=== PATIENT | male | born 1940 | race Caucasian/White ===

== ENCOUNTER 2021-09-20 11:58 | Inpatient (IN) | payer MEDICARE ==
[2021-09-20 13:42] LABS: #Monocytes 0.7 10x3/uL (0.0-1.1); #Neutrophils 4.3 10x3/uL (1.5-8.4); %Basophils 0.6 % (0.0-2.0); %Eosinophils 0.5 % (0.0-6.0); %Lymphocytes 23.8 % (18.0-47.0); %Monocytes 10.3 % (0.0-10.0); %Neutrophils 64.3 % (40.0-75.0); Hemoglobin 13.3 g/dL (13.5-17.5); Mean Corpuscular HGB CONC 36.3 g/dL (32.0-36.0); Mean Corpuscular Hemoglobin 34.9 pg (27.0-33.0); Mean Corpuscular Volume 96.1 fl (81.2-95.1); Mean Platelet Volume 9.2 fl (7.4-10.4); Platelet Count 213 10x3/uL (150-450); RBC Distribution Width 11.6 % (11.5-14.5); Red Blood Cell (RBC) Count 3.81 10x6/uL (4.32-5.72); White Blood Cell (WBC) Count 6.6 10x3/uL (3.5-10.5)
[2021-09-20 13:54] LABS: ALT (SGPT) 13 U/L (8-55); AST (SGOT) 29 U/L (5-34); Albumin 3.8 g/dL (3.4-4.8); Alkaline Phosphatase 70 U/L (40-110); Anion Gap 16 mmol/L (10-20); BUN (Urea Nitrogen) 11 mg/dL (8.4-25.7); Bilirubin, Total 0.6 mg/dL (0.2-1.2); Calc. Creatinine Clearance 0 mL/min (70-130); Calcium 8.7 mg/dL (7.8-10.44); Carbon Dioxide 22 mmol/L (23-31); Chloride 80 mmol/L (98-107); Globulin 2.3 g/dL (2.4-3.5); Potassium 4.5 mmol/L (3.5-5.1); Protein, Total 6.1 g/dL (5.8-8.1)
[2021-09-20 13:55] LABS: Glucose 57 mg/dL (83-110); Sodium 113 mmol/L (136-145)
[2021-09-20] MEDS ORDERED: Dextrose 50% Abboject 50 ML SYRINGE ONE (14:35)
[2021-09-20] MEDS ORDERED: Sodium Chloride 3% 100 ML IVPB SCH (15:30)
[2021-09-20] MEDS ORDERED: Senokot S 8.6-50 MG TAB PO PRN (15:34)
[2021-09-20 15:50] LABS: Bilirubin Neg (Negative); Blood, Urine Negative (Negative); Clarity Clear (Clear); Glucose, Urine (Dipstick) Normal (Negative); Ketone, Urine Negative (Negative); Leukocyte Negative (Negative); Nitrite Negative (Negative); Protein, Urine (Dipstick) Negative (Neg-Trace); Urobilinogen Normal mg/dL (Less than 2)
[2021-09-20 16:20] LABS: Glucose POC Confirmation 108 mg/dl (83-110)
[2021-09-20 16:29] LABS: SARS-CoV-2 NAA Rapid Test Not Detected (NotDetected)
[2021-09-20 16:34] LABS: Sodium 114 mmol/L (136-145)
[2021-09-20 19:23] LABS: Glucose 122 mg/dL (83-110)
[2021-09-20 19:27] LABS: Sodium 116 mmol/L (136-145)
[2021-09-20] MEDS ORDERED: Furosemide 20 MG/2 ML VIAL SLOW IVP SCH (20:00)
[2021-09-20] MEDS ORDERED: Aspirin 81 mg Enteric Coated Tablet PO SCH (20:30)
[2021-09-20] MEDS: Famotidine 20 MG TAB PO SCH (20:56)
[2021-09-20] MEDS ORDERED: Metoprolol Tartrate 25 MG TAB PO SCH (21:00)
[2021-09-20] MEDS ORDERED: Lisinopril 20 MG TAB PO SCH (21:00)
[2021-09-20 22:30] LABS: Glucose 103 mg/dL (83-110)
[2021-09-21 00:17] LABS: Sodium 118 mmol/L (136-145)
[2021-09-21 04:53] LABS: Anion Gap 20 mmol/L (10-20); BUN (Urea Nitrogen) 14 mg/dL (8.4-25.7); Calc. Creatinine Clearance 73 mL/min (70-130); Calcium 9.1 mg/dL (7.8-10.44); Carbon Dioxide 20 mmol/L (23-31); Chloride 85 mmol/L (98-107); Glucose 75 mg/dL (83-110); Potassium 4.5 mmol/L (3.5-5.1); Sodium 120 mmol/L (136-145)
[2021-09-21 05:07] LABS: ALT (SGPT) 15 U/L (8-55); AST (SGOT) 33 U/L (5-34); Albumin 3.7 g/dL (3.4-4.8); Alkaline Phosphatase 84 U/L (40-110); Bilirubin, Direct 0.2 mg/dL (0.1-0.3); Bilirubin, Total 0.6 mg/dL (0.2-1.2); Magnesium 1.7 mg/dL (1.6-2.6); Protein, Total 6.2 g/dL (5.8-8.1)
[2021-09-21] MEDS ORDERED: Furosemide 40 MG TAB PO SCH (07:30)
[2021-09-21 07:33] LABS: #Basophils 0.1 10x3/uL (0.0-0.2); #Monocytes 0.9 10x3/uL (0.0-1.1); #Neutrophils 5.6 10x3/uL (1.5-8.4); %Basophils 0.6 % (0.0-2.0); %Eosinophils 0.4 % (0.0-6.0); %Monocytes 11.9 % (0.0-10.0); %Neutrophils 72.8 % (40.0-75.0); Hemoglobin 13.5 g/dL (13.5-17.5); Mean Corpuscular HGB CONC 36.8 g/dL (32.0-36.0); Mean Corpuscular Hemoglobin 35.6 pg (27.0-33.0); Mean Corpuscular Volume 96.8 fl (81.2-95.1); Mean Platelet Volume 9.3 fl (7.4-10.4); Platelet Count 209 10x3/uL (150-450); RBC Distribution Width 11.6 % (11.5-14.5); Red Blood Cell (RBC) Count 3.79 10x6/uL (4.32-5.72); White Blood Cell (WBC) Count 7.7 10x3/uL (3.5-10.5)
[2021-09-21] MEDS: Metoprolol Tartrate 25 MG TAB PO SCH ×2 (08:00→21:02)
[2021-09-21] MEDS: Enoxaparin Sodium 40 MG/0.4 ML SYRINGE SC SCH (08:01)
[2021-09-21] MEDS: Famotidine 20 MG TAB PO SCH (08:01)
[2021-09-21] MEDS: Sodium Bicarbonate Tab 325 MG TAB PO SCH ×2 (08:13→21:02)
[2021-09-21] MEDS ORDERED: Lisinopril 10 MG TAB PO SCH (09:00)
[2021-09-21] MEDS ORDERED: Amlodipine 5 MG TAB PO SCH (09:00)
[2021-09-21 16:23] VITALS: BMI 23.6
[2021-09-21 17:50] LABS: Anion Gap 19 mmol/L (10-20); BUN (Urea Nitrogen) 20 mg/dL (8.4-25.7); Calc. Creatinine Clearance 50 mL/min (70-130); Calcium 9.1 mg/dL (7.8-10.44); Carbon Dioxide 24 mmol/L (23-31); Chloride 84 mmol/L (98-107); Glucose 104 mg/dL (83-110); Potassium 3.9 mmol/L (3.5-5.1); Sodium 123 mmol/L (136-145)
[2021-09-21 22:31] LABS: Anion Gap 15 mmol/L (10-20); BUN (Urea Nitrogen) 22 mg/dL (8.4-25.7); Calc. Creatinine Clearance 49 mL/min (70-130); Calcium 9.2 mg/dL (7.8-10.44); Carbon Dioxide 28 mmol/L (23-31); Chloride 86 mmol/L (98-107); Glucose 99 mg/dL (83-110); Potassium 5.3 mmol/L (3.5-5.1); Sodium 124 mmol/L (136-145)
[2021-09-22 04:35] LABS: Anion Gap 17 mmol/L (10-20); BUN (Urea Nitrogen) 20 mg/dL (8.4-25.7); Calc. Creatinine Clearance 56 mL/min (70-130); Calcium 8.8 mg/dL (7.8-10.44); Carbon Dioxide 23 mmol/L (23-31); Chloride 88 mmol/L (98-107); Glucose 84 mg/dL (83-110); Potassium 4.4 mmol/L (3.5-5.1); Sodium 124 mmol/L (136-145)
[2021-09-22 04:36] LABS: Hemoglobin 13.3 g/dL (13.5-17.5); Mean Corpuscular HGB CONC 36.5 g/dL (32.0-36.0); Mean Corpuscular Hemoglobin 35.2 pg (27.0-33.0); Mean Corpuscular Volume 96.3 fl (81.2-95.1); Mean Platelet Volume 9.6 fl (7.4-10.4); Platelet Count 178 10x3/uL (150-450); RBC Distribution Width 11.7 % (11.5-14.5); Red Blood Cell (RBC) Count 3.78 10x6/uL (4.32-5.72); White Blood Cell (WBC) Count 6.1 10x3/uL (3.5-10.5)
[2021-09-22 05:42] LABS: MDiff Complete? YES
[2021-09-22 05:46] LABS: Band 2 % (5-11); Eosinophils 1 % (0-10); Lymphocytes 22 % (21-51); Monocytes 19 % (0-10); Neutrophil 53 % (42-75); Reactive Lymphocytes 1 % (0-10)
[2021-09-22 05:48] LABS: Platelet Morphology Comment Appears Adequate; RBC Morphology Normal
[2021-09-22] MEDS: Metoprolol Tartrate 25 MG TAB PO SCH ×2 (08:51→21:12)
[2021-09-22] MEDS: Sodium Chloride 1 GM TAB PO SCH ×3 (08:53→21:13)
[2021-09-22] MEDS: Enoxaparin Sodium 40 MG/0.4 ML SYRINGE SC SCH (08:53)
[2021-09-22] MEDS: Sodium Bicarbonate Tab 325 MG TAB PO SCH ×2 (08:54→21:12)
[2021-09-22] MEDS ORDERED: Famotidine 20 MG TAB PO SCH (09:00)
[2021-09-22] MEDS: Famotidine 20 MG TAB PO SCH (21:12)
[2021-09-23] MEDS ORDERED: Acetaminophen 325 MG TAB PO PRN (01:50)
[2021-09-23 04:14] LABS: Anion Gap 14 mmol/L (10-20); BUN (Urea Nitrogen) 20 mg/dL (8.4-25.7); Calc. Creatinine Clearance 61 mL/min (70-130); Calcium 9.1 mg/dL (7.8-10.44); Carbon Dioxide 26 mmol/L (23-31); Chloride 94 mmol/L (98-107); Glucose 95 mg/dL (83-110); Potassium 3.7 mmol/L (3.5-5.1); Sodium 130 mmol/L (136-145)
[2021-09-23 04:25] LABS: Hemoglobin 14.2 g/dL (13.5-17.5); Mean Corpuscular HGB CONC 35.3 g/dL (32.0-36.0); Mean Corpuscular Hemoglobin 35.1 pg (27.0-33.0); Mean Corpuscular Volume 99.3 fl (81.2-95.1); Mean Platelet Volume 9.1 fl (7.4-10.4); Platelet Count 208 10x3/uL (150-450); RBC Distribution Width 12.1 % (11.5-14.5); Red Blood Cell (RBC) Count 4.05 10x6/uL (4.32-5.72); White Blood Cell (WBC) Count 6.1 10x3/uL (3.5-10.5)
[2021-09-23 06:10] LABS: MDiff Complete? YES
[2021-09-23 06:13] LABS: Band 3 % (5-11); Eosinophils 6 % (0-10); Lymphocytes 22 % (21-51); Monocytes 16 % (0-10); Neutrophil 49 % (42-75); Reactive Lymphocytes 2 % (0-10)
[2021-09-23 06:14] LABS: Platelet Morphology Comment Appears Adequate; RBC Morphology Normal
[2021-09-23] MEDS: Famotidine 20 MG TAB PO SCH (08:25)
[2021-09-23] MEDS: Sodium Chloride 1 GM TAB PO SCH ×2 (08:25→15:10)
[2021-09-23] MEDS: Sodium Bicarbonate Tab 325 MG TAB PO SCH (08:25)
[2021-09-23] MEDS: Enoxaparin Sodium 40 MG/0.4 ML SYRINGE SC SCH (08:26)
[2021-09-23] MEDS ORDERED: Metoprolol Tartrate 25 MG TAB PO SCH (09:00)
[2021-09-23 16:21] VITALS: BP 122/60; TEMP 97.3
== END 2021-09-23 16:55 | disposition home or self-care (01) | DRG 644 ==
LOC: CSHERS 11:58 → CSHICU 16:11
PROVIDERS: ADMIT Hospitalist; ATTEND Internal Medicine
DX: E22.2 Syndrome of inappropriate secretion of antidiuretic hormone (principal); E87.2 Acidosis; N17.9 Acute kidney failure, unspecified; I10 Essential (primary) hypertension; N40.0 Benign prostatic hyperplasia without lower urinary tract symptoms; F17.210 Nicotine dependence, cigarettes, uncomplicated; E16.2 Hypoglycemia, unspecified; I44.4 Left anterior fascicular block; J44.9 Chronic obstructive pulmonary disease, unspecified; F10.10 Alcohol abuse, uncomplicated; Z20.822 Contact with and (suspected) exposure to COVID-19; R60.0 Localized edema
CPT/HCPCS: 36415; 36416; 71046; 80048; 80076; 81003; 83735; 83880; 83930; 83935; 84300; 85025; 93005; 93010; 93306; J1650; J1940; J7131; J7999; U0002